=== PATIENT | male | born 1975 | race Caucasian/White ===

== ENCOUNTER 2017-01-09 00:52 | Emergency (ER) | payer OTHER ==
[~2017-01-09] VITALS: Ht 182.9 cm; Wt 76.5 kg
[2017-01-09 00:57] VITALS: Ht 182.9 cm; Wt 76.5 kg
[2017-01-09] MEDS ORDERED: IBUPROFEN 600 MG TAB PO STA (01:32)
[2017-01-09] MEDS ORDERED: IBUP400T22 PO (01:37)
--- NOTE | 2017-01-09 01:41 | ERD ---
ER Documentation Chief Complaint Date/Time DATE: 01/09/17 TIME: 01:39 Chief Complaint lwft arm pain x 1 day, denies injury HPI This is a 42-year-old male presenting to the emergency department stating that he has pain in his left anterior cubital fossa region that radiates up for the past day. Patient states that he was seen at a different hospital yesterday for a headache in which she got a line on his left arm. Patient's states that he has bruising there now and is complaining of the pain. He denies any chest pain, shortness of breath. He states the pain is moderate in severity. He denies any restricted range of motion. Denies taking any medication for this. Denies any relevant medical polyp ROS All systems reviewed and are negative except as per history of present illness. Medications Home Meds Active Scripts Ibuprofen* (Ibuprofen*) 400 Mg Tablet, 400 MG PO Q6H Y for PAIN, #30 TAB Prov:AILIN RICE PA-C 01/09/17 Allergies Allergies: Coded Allergies: Penicillins (Verified Allergy, Severe, UNKNOWN, 10/04/11) PMhx/Soc Medical and Surgical Hx: pt denies Medical Hx History of Surgery: Yes (RHINOPLASTY 1994) Anesthesia Reaction: No Hx Neurological Disorder: No Hx Respiratory Disorders: No Hx Cardiac Disorders: No Hx Psychiatric Problems: No Hx Miscellaneous Medical Probl: No Hx Alcohol Use: No Hx Substance Use: No Hx Tobacco Use: No Smoking Status: Never smoker Physical Exam Vitals Vital Signs Date Time Temp Pulse Resp B/P Pulse Ox O2 Delivery O2 Flow Rate FiO2 01/09/17 00:57 97.8 60 20 121/78 100 Physical Exam General: WD/WN, in no apparent distress, non-toxic appearing HENT: NC/AT Eyes: Conjunctiva normal Neck: Supple Pulm: Clear to auscultation, normal labored breathing; no wheezing/rales/ rhonchi heard CV: Good capillary refill, regular rate and rhythm GI: Non-distended, no guarding Back: No masses Ext: Full range of motion of upper extremities bilaterally, and ecchymosis noted in the left antecubital fossa where the pain was Neuro: Moves on all fours Skin: intact Psych: Normal mood Results 24 hrs Current Medications Medications (Trade) Dose Ordered Sig/Britney Route PRN Reason Start Time Stop Time Status Last Admin Dose Admin Ibuprofen (Motrin) 600 mg ONCE STAT PO 01/09/17 01:32 01/09/17 01:33 DC Procedures/MDM This is a 42-year-old male who is homeless presenting to the emergency department complaining of pain in the antecubital fossa region of his left arm that radiates upward since he got an IV placed in his arm yesterday at a different hospital. On examination there is ecchymosis noted, patient had full range of motion. Pain is likely due to the IV. I doubt patient has any fracture, dislocation, cellulitis. Patient stable to be discharged home. Discussed to follow-up with primary care physician. Discussed return to the ER for any worsening symptoms. He understands and agrees with this plan Departure Diagnosis: Primary Impression: Left arm pain Condition: Stable Patient Instructions: Self-Care for Strains and Sprains Additional Instructions: FOLLOW UP WITH YOUR PRIMARY CARE PHYSICIAN TOMORROW.Return to this facility if you are not improving as expected. Return to this facility if you are not improving as expected. Take all medicines as directed. AILIN RICE PA-C Jan 09, 2017 01:41
== END 2017-01-09 02:19 | disposition home or self-care (01) ==
LOC: FTE 00:52
DX: M79.602 Pain in left arm (principal)
CPT/HCPCS: Z7502; Z7610; 93005; 99283